=== PATIENT | female | born 1950 | race Caucasian/White ===

== ENCOUNTER 2019-06-03 17:30 | Inpatient (IN) | payer OTHER ==
[~2019-06-03] VITALS: Ht 165.1 cm; Wt 157.4 kg
[2019-06-03 17:50] LABS: ABSOLUTE NEUTROPHILS 6.1 thou/uL (1.4-8.2); BASOPHILS 0.6 % (0.0-2.0); EOSINOPHILS 2.9 % (0.0-3.0); HEMATOCRIT 44.5 % (37.0-47.0); HEMOGLOBIN 14.6 gm/dL (12.0-15.0); LYMPHOCYTES 25.5 % (24.0-44.0); MCH 30.3 pg (26.0-34.0); MCHC 32.8 g/dL (28.0-37.0); MCV 92.5 fL (80.0-100.0); MONOCYTES 9.6 % (1.0-8.0); PLATELET COUNT 238 thou/uL (150-400); POLYS 61.4 % (36.0-66.0); RBC 4.81 mil/uL (4.20-5.00); RDW 14.4 % (10.5-14.5); WBC 9.9 thou/uL (4.0-11.0)
[2019-06-03 18:04] LABS: ANION GAP 6 mmol/L (7-16); BUN 25 mg/dL (7-18); CALCIUM 9.4 mg/dL (8.5-10.1); CHLORIDE 101 mmol/L (98-107); CO2 33 mmol/L (21-32); GLUCOSE 119 mg/dL (74-106); POTASSIUM 3.3 mmol/L (3.5-5.1); SODIUM 140 mmol/L (136-145)
[2019-06-03 18:05] LABS: APTT 26.5 Seconds (24.5-32.8)
[2019-06-03 18:13] LABS: ALBUMIN 3.5 g/dL (3.4-5.0); SGOT 16 U/L (15-37); SGPT 20 U/L (30-65); TOTAL BILIRUBIN 0.5 mg/dL (<0.1-1.0); TOTAL PROTEIN 7.3 g/dL (6.4-8.2); TROPONIN-I <0.06 ng/mL (<0.06)
[2019-06-03 18:20] LABS: URINE BILIRUBIN NEGATIVE (Negative); URINE BLOOD NEGATIVE (Negative); URINE CLARITY CLEAR; URINE COLOR YELLOW; URINE GLUCOSE-RANDOM* NEGATIVE (Negative); URINE KETONES NEGATIVE (Negative); URINE LEUKOCYTES-REFLEX NEGATIVE (Negative); URINE NITRITE-REFLEX NEGATIVE (Negative); URINE PROTEIN (DIPSTICK) NEGATIVE (Negative); URINE UROBILINOGEN 0.2 E.U./dl (0.2-1.0)
[2019-06-03 18:27] LABS: AMP/METHAMP Negative (Negative); BARBITURATES Negative (Negative); BENZODIAZEPINES Negative (Negative); COCAINE Negative (Negative); METHADONE Negative (Negative); OPIATES Negative (Negative); PCP Negative (Negative)
[2019-06-03] MEDS ORDERED: HYDROCHLOROTHIA25 M2 PO (18:36)
[2019-06-03 19:22] VITALS: BP 141/73
--- NOTE | 2019-06-03 20:35 | NUR ---
ED NURSE CALLED INPATIENT NURSE TO GIVE REPORT WAS TOLD NURSE WILL CALL BACK IN 5 MINUTES
--- NOTE | 2019-06-03 20:36 | NUR ---
HEPARIN ORDER WAS PLACED BY ED PHYSICIAN AT 1838, PT WAS IN MRI UNTIL 1944, THIS NURSE CALLED PHARMACY AT 1951 TO INQUIRE ABOUT THE HEPARIN DRIP, WAS TOLD BY PHARMACY THAT THE ORDER NEVER WENT THROUGH AND THEY DID NOT KNOW ANYTHING ABOUT IT.
[2019-06-03 21:00] VITALS: BP 151/75
[2019-06-03 21:19] LABS: CHOLESTEROL 229 mg/dL (<200); HDL CHOLESTEROL 56 mg/dL (>40); LDL CHOLESTEROL 156 mg/dL (<100); SERUM ASSESSMENT Clear; TC:HDL 4.1 Ratio (Not establshd); TRIGLYCERIDE 89 mg/dL (<150); VLDL 18 mg/dL (<40)
[2019-06-03 23:41] VITALS: BP 154/63
[2019-06-04 03:31] VITALS: BP 124/67
--- NOTE | 2019-06-04 05:22 | NUR ---
PT ARRIVED ON UNIT AROUND 2100. PT WAS ACCOMPANIED BY DAUGHTER AND BROTHER. PT SCORED 0 ON NIH SCALE THAT HAS BEEN DONE Q4. PT LEFT SIDED FACIAL DROOP IS RESOLVED AND NO CHANGE NOTED. PT IS AOX4 AND ABLE TO ANSWER ADMIN QUESTIONS WITH NO PROBLEMS. PT HAD NO C/O OF CHEST PAIN, SOA, OR N/V/D. PT IS AFIB/AFLUTTER ON MONITOR BUT ASYMPTOMATIC. PT HAS ORDERS TO START CARDIZEM IF HR ELEVATES. PT ON HEPARIN DRIP AND DOSE ADJUSTED PER PHARMACY AND LAB LEVELS. PT IS STEADY ON FEET WITH STBY ASSIST. CONSULTS CALLED. WILL CONTINUE TO MONITOR.
[2019-06-04 07:00] VITALS: BP 126/63
[2019-06-04 07:21] LABS: CALCIUM 9.3 mg/dL (8.5-10.1); CREATININE 0.9 mg/dL (0.6-1.0); POTASSIUM 3.4 mmol/L (3.5-5.1)
--- NOTE | 2019-06-04 08:16 | EKG ---
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
[2019-06-04 12:30] VITALS: BP 126/76
--- NOTE | 2019-06-04 14:07 | 2DMMODE ---
[facility] [address] [facility] [place] [address] 2 D/M-MODE ECHOCARDIOGRAM Name: LOPEZ ARENAS Room #: 219-P ADM IN M.R.#: [id number] Admission: 06/03/19 Attend Phys: Phillip Michael MD Discharge: Date of : 50 Report #: [id number] THIS REPORT FOR: cc: FAM - No family physician/PCP ZEV - No family physician/PCP Aidan Hawthorne MD ~ APPROVED REPORT Study performed: 06/04/2019 10:32:55 EXAM: Comprehensive 2D, Doppler, and color-flow Echocardiogram Patient Location: Bedside Room #: 219 Status: routine BSA: 2.51 HR: 85 bpm BP: 126/63 mmHg Rhythm: NSR Other Information Study Quality: Good Risk Factors: Cardiac Risk Factors: HTN Indications Aortic Valve Disease Mitral Valve Disease CVA/TIA Murmur Atrial Fibrillation Echo Enhancing Agent Indication: Endocardial border delineation Agent(s) / Amount(s) Used: Optison 3 cc Comments: 7 cc Agitated saline to rule out a shunt. 2D Dimensions RVDd: 46.66 mm IVSd: 17.83 (7-11mm) LVOT Diam: 16.60 (18-24mm) LVDd: 40.78 mm PWd: 13.66 (7-11mm) Ascending Ao: 30.88 (22-36mm) LVDs: 29.76 (25-40mm) Aortic Root: 25.82 mm IVC: 26.00 mm [facility] [address] [place] [address] 2 D/M-MODE ECHOCARDIOGRAM Name: LOPEZ ARENAS Room #: 219-P ADM IN M.R.#: [id number] Admission: 06/03/19 Attend Phys: Phillip Michael MD Discharge: Date of : 50 Report #: [id number] Volumes Left Atrial Volume (Systole) Single Plane 4CH: 139.78 mL Single Plane 2CH: 122.95 mL LA ESV Index: 54.00 mL/m2 Aortic Valve AoV Peak Kyler.: 3.23 m/s AO Peak Gr.: 41.63 mmHg LVOT Max P.47 mmHg AO Mean Gr.: 25.40 mmHg LVOT Mean P.23 mmHg AO V2 Mean: 2.45 m/s LVOT Max V: 1.62 m/s AO V2 VTI: 73.96 cm LVOT Mean V: 1.30 m/s LIA (VTI): 1.11 cm2 LVOT V1 VTI: 37.88 cm LIA Vmax: 1.08 cm2 SV (LVOT): 81.99 mL Mitral Valve MV Peak Gr.: 10.19 mmHg MV Mean Gr.: 3.61 mmHg MV Max Kyler.: 1.59 m/s MV Mean Kyler.: 0.84 m/s MV VTI: 353.17 mm MVA VTI: 232.14 mm2 MV PHT: 84.78 ms MVA (PHT): 2.60 cm2 Pulmonary Valve PV Peak Kyler.: 1.39 m/s PV Peak Gr.: 7.72 mmHg Tricuspid Valve TR Peak Kyler.: 3.14 m/s TR Peak Gr.: 39.52 mmHg PA Pressure: 47.00 mmHg Left Ventricle The left ventricle is normal size. There is hypokinesis in the apical wall. Moderate concentric left ventricular hypertrophy. The overall left ventricular systolic function appears normal. No left ventricular thrombus noted. LVEF is 50-55%. This study is not technically sufficient to allow evaluation of the LV diastolic function due to atrial fibrillation. Right Ventricle The right ventricle is normal size. The right ventricular systolic function is normal. [facility] [address] [place] [address] 2 D/M-MODE ECHOCARDIOGRAM Name: LOPEZ ARENAS Room #: 219-P [facility] IN .R.#: [id number] Admission: 06/03/19 Attend Phys: Phillip Michael MD Discharge: Date of : 50 Report #: [id number] Atria Left atrium is dilated. Interatrial septum is intact without evidence of ASD or PFO. Right atrium is dilated. Aortic Valve The aortic valve is normal in structure. Aortic valve is calcified. Mild aortic regurgitation. Moderate aortic stenosis. Mitral Valve The mitral valve is normal in structure. There is mitral annular calcification. Mitral valve leaflets are thickened. Mild mitral regurgitation. Mild mitral stenosis. Tricuspid Valve The tricuspid valve is normal in structure. There is mild tricuspid regurgitation. Estimated PAP 47 mmHg. There is moderate pulmonary hypertension. Pulmonic Valve The pulmonary valve is normal in structure. Trace to mild pulmonic regurgitation. Great Vessels The aortic root is normal in size. IVC is dilated and collapses >50% with inspiration. Pericardium There is no pericardial effusion. <Conclusion> The left ventricle is normal size. LVEF is 50-55%. There is hypokinesis in the apical wall. Left atrium is dilated. Right atrium is dilated. Interatrial septum is intact without evidence of ASD or PFO. The aortic valve is normal in structure. Aortic valve is calcified. Mild aortic regurgitation. Moderate aortic stenosis. The mitral valve is normal in structure. There is mitral annular calcification. Mitral valve leaflets are thickened. Mild mitral regurgitation. Mild mitral stenosis. The tricuspid valve is normal in structure. [address] [address] 2 D/M-MODE ECHOCARDIOGRAM Name: LOPEZ ARENAS Room #: 219-P [facility] IN M.R.#: [id number] Admission: 06/03/19 Attend Phys: Phillip Michael MD Discharge: Date of : 50 Report #: [id number] There is mild tricuspid regurgitation. Estimated PAP 47 mmHg. There is moderate pulmonary hypertension. The pulmonary valve is normal in structure. Trace to mild pulmonic regurgitation. There is no pericardial effusion. <ELECTRONICALLY SIGNED> By: Aidan Hawthorne MD 06/04/19 1406 140 140 Aidan Hawthorne MD /INF
--- NOTE | 2019-06-04 14:48 | NUR ---
ORDERS RECEIVED FOR PT EVAL AND TREAT. Pt HAS BEEN UP IN ROOM SBA WITH NURSING D/T HEPARIN DRIP. AOX4. Pt LIVES ALONE AT HOME WITH 2 HEIDY WITH BILAT HR. NORMALLY HAS NO DIFFICULTY WITH STAIRS. Pt HAS BROTHER AND DTR NEARBY THAT SHE COULD CALL IF NEEDED HELP AT HOME. DENIED RECENT FALLS. USES NO GAIT AIDS. INDEP WITH ADLs/IADLs. Pt'S LE STRENGTH GROSSLY 5/5. NO FACIAL DROOP NOTED AND NO UNILAT STRENGTH/SENSATION DEFICITS NOTED. Pt ABLE COMPLETE BED MOB AND SIT<> STAND INDEP AND AMB IN ROOM SBA WITH IV POLE. Pt DECLINED FURTHER PT NEEDS AT THIS TIME. ACUTE PT TO SIGN OFF. RECOMMEND CONTINUED SBA WITH NURSING STAFF WHILE ON HEPARIN DRIP FOR SAFETY D/T INCREASED RISK OF BLEEDING.
[2019-06-04 16:51] VITALS: BP 123/54
[2019-06-04 19:24] VITALS: BP 134/71
--- NOTE | 2019-06-04 19:46 | NUR ---
ASSUMED CARE OF PATIENT AT 0700. PATIENT RESTING COMFORTABLY IN BED. ASSESSMENT COMPLETED. NO VISUAL FACIAL DROOPING OR APHASIA. NIH SCALES PERFORMED Q FOUR HOURS WITH A SCORE OF 0. PATIENT CONTINUES TO BE IN AFIB WITH A CONTROLLED RATE IN THE 80'S. PATIENT IS ON HEPARIN CONTINUOUSLY WITH APTT Q 6 HOURS, FIRST THERAPEUTIC RESULT AT 1445. PATIENT CONTINUE WITH POC.
[2019-06-05 01:07] LABS: GLYCOHEMOGLOBIN (HGB A1C) 5.7 % (4.8-5.6)
[2019-06-05 03:47] VITALS: BP 115/57
--- NOTE | 2019-06-05 05:12 | NUR ---
ASSUMED PT CARE AROUND 1900. PT RESTING IN CHAIR AT BEDSIDE. PT HAD NO C/O PAIN, SOA, N/V/D. PT NIH STILL 0. PT STILL ON HEPARIN DRIP. PT HAS NO SIGNS OF DISTRESS NOTED. PT ASSESSMENT CHARTED. PT RESTED THRU NIGHT WITH MINIMAL INTERRUPTIONS.
[2019-06-05 07:40] VITALS: BP 118/74
[2019-06-05 11:40] VITALS: BP 146/79
[2019-06-05 15:56] VITALS: BP 143/83
--- NOTE | 2019-06-05 16:56 | NUR ---
RECEIVED PT'S CARE AROUND 0730; PT. AOX4; DURING AM ASSESSMENT NO C/O PAIN; NEURO ASSESSMENT SCORE 0 DURING AM; HEPARING GTT RUNNING; NO CHANGE ON RATE; ABLE TO AMBULATE FROM CHAIR TO BATHROOM; AM MEDICATION GIVEN; EDUCATED ABOUT NOT EATING DUE TO STRESS TEST LATER ON THE DAY; UNDERSTANDING; GONE FOR PROCEDURE AROUND 0930; BACK AROUND 1130; NO C/O PAIN; AFIB ON THE MONITOR; PER PT. REPORT DR. MCDONALD ST. PT. NEED TO HAVE A TEST TO CHECK DURING THE NIGHT 02; PT. 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 NOTIFIED; NO CHANGES OVER NEURO ASSESSMENT THROUGH THE DAY; ASSESSMENT CHARGED; FOLLOWING POC; WILL PASS ON REPORT;
[2019-06-05 20:45] VITALS: BP 139/60; BP 156/92
--- NOTE | 2019-06-06 03:17 | NUR ---
pt resting quietly in room, noc desat study on room air, no c/o pain, heparin gtt infusing per protocol, vss, will con't to monitor per ppoc.
[2019-06-06 04:45] VITALS: BP 112/58
[2019-06-06 08:00] VITALS: BP 120/66
--- NOTE | 2019-06-06 12:08 | NUR ---
AAOX4. CALM, PLEASANT. HEPARIN DRIP. NOCTURNAL DESAT STUDY OVERNIGHT. AFIB PER TELE, RATE CONTROLLED. DR. MONTERROSO HERE; PERMIT FOR CARDIAC CATH SATURDAY SIGNED. WILL CONTINUE TO FOLLOW CLOSELY.
[2019-06-06 16:00] VITALS: BP 136/72
[2019-06-06 18:32] LABS: HEMATOCRIT 44.1 % (37.0-47.0); HEMOGLOBIN 14.2 gm/dL (12.0-15.0); MCH 29.9 pg (26.0-34.0); MCHC 32.1 g/dL (28.0-37.0); MCV 93.1 fL (80.0-100.0); RBC 4.74 mil/uL (4.20-5.00); RDW 14.8 % (10.5-14.5); WBC 7.8 thou/uL (4.0-11.0)
[2019-06-06 20:33] VITALS: BP 107/69
[2019-06-07 04:45] VITALS: BP 149/77
--- NOTE | 2019-06-07 06:46 | NUR ---
ASSUME CARE 1900. PT/VITALS STABLE. DENIES ANY PAIN. UP AD RAYNE. AFIB/AFLUTTER ON MONITOR. ASSESSMENT CHARTED. PROGRESSING WELL WITH POC. PT ON HEPARIN DRIP WITH STABLE PTT. POSITIVE STRESS TEST. PLAN IS CARDIAC CATH ON SATURDAY. WILL CONTINUE TO MONITOR AND FOLLOW WITH POC
[2019-06-07 08:58] VITALS: BP 120/74
--- NOTE | 2019-06-07 10:12 | NUR ---
AAOX4. CALM, COOPERATIVE. AMBULATING AROUND THE ROOM. NO C/O. HEPARIN DRIP IN THERAPEUTIC WINDOW. CARDIAC CATH TOMORROW. AFIB/AFLUTTER PER TELE. WILL CONTINUE TO FOLLOW CLOSELY.
[2019-06-07 13:48] VITALS: BP 136/76
[2019-06-07 17:00] VITALS: BP 131/70
[2019-06-07 20:57] VITALS: BP 138/63
[2019-06-08] VITALS (13 sets, daily range): BP systolic 101–137; BP diastolic 57–76
--- NOTE | 2019-06-08 04:18 | NUR ---
PT ALERT AND ORIENTED. VSS. AFIB, AND RATE CONTROLLED ON THE MONITOR. DENIES CHEST PAINS, OR ANY SOB. NO FACIAL DROOP OR SLURRED SPEECH NOTICED. HEPARIN GTT MAINTAINED. NPO SINCE 0000 FOR CARDIAC CATH TODAY. NO SIGNS OF DISTRESS NEEDED AT THIS TIME. WILL CONTINUE TO FOLLOW POC.
--- NOTE | 2019-06-08 13:32 | NUR ---
PT ARRIVED TO FLOOR AT 1110 FROM ER, FIANCE AT SIDE, ASSESSED, ORIENTED X 4, BUT SOMEWHAT CONFUSED AT TIMES, VSS, ORIENTED TO ROOM, STAFF, POC, CONSENT SIGNED, PT IS NOW NPO FOR U/S OF ABDOMEN, GI NON DESTRUCTIVE TESTING SPECIALIST AND MD IN TO SEE PT, DISCUSSED NEED FOR AA TO GET SUPPORT AND STOP DRINKING ALCOHOL. PT HAD ONE EPISODE OF DIARRHEA, GIVEN A BRIEF, WILL MONITOR.
--- NOTE | 2019-06-08 18:20 | CATHLAB ---
[facility] [address] [place] [address] INVASIVE PROCEDURE REPORT Name: LOPEZ ARENAS Room #: 219-P ADM IN M.R.#: [id number] Admission: 06/03/19 Attend Phys: Sid Lucia MD Discharge: Date of : 50 Report #: [id number] THIS REPORT FOR: cc: FAM - No family physician/PCP FAM - No family physician/PCP Ky Mathis MD [facility] ~ ADDENDUM APPROVED REPORT Study performed: 06/08/2019 07:40:05 Patient Details Patient Status: In-Patient Room #: The patient is a 68 year-old female Event Personnel Ky Mathis Substance Abuse Specialist, Marti Roberts RN RN, Rosalinda Nazario RTR, Santiago Lindsey Roberta Monitor Procedures Performed Art Access - R femoral artery* Yunior Access - R femoral vein Right and Left Heart Cath w/Lt. Venogram [id number] RLCWLV Aortogram Abdominal Peripheral Angio 279109 Hemostasis w/ Mynx SADIQ Place w/wo Plasty Single LAD 629374 94705 Initial Mod Sed Same Phys/QHP Gr5y 849172 86941 Mod Sed Same Phys/QHP Ea 604129 Indication Chest pain Procedure Narrative The Right Groin^ was infiltrated with subcutaneous anesthesia. A PINNACLE 6FR Sheath #[id number] sheath was inserted into the RFA 6F^. Coronary angiography was performed using coronary diagnostic catheters. The right coronary system was accessed and visualized with a JR4 catheter. The left coronary system was accessed and visualized with a JL4 catheter. The left ventricle was accessed and visualized with a STR PIG catheter. Left ventriculogram was performed in 30 degree projection. An aortogram of the abdominal aorta was performed. Closure device was deployed with a Fr MYNXGRIP 6/7F #[id number]. Hemostasis was obtained with manual pressure following sheath removal without any complications. The patient tolerated the procedure well and there were no complications associated with the procedure. There was no hematoma. 7F SHEATH PLACED IN RFV - HELD MANUAL PRESSURE WITH NO COMPLICATIONS. [facility] [address] [place] [address] INVASIVE PROCEDURE REPORT Name: LOPEZ ARENAS Room #: 219-P [facility] IN ..#: [id number] Admission: 06/03/19 Attend Phys: Sid Lucia MD Discharge: Date of : 50 Report #: [id number] Intraoperative Conscious Sedation Sedation start time: 0800 Case end Time: 919 Fentanyl 50 mcg Versed 1 mg Fluoro Time: 1953.00 minutes Dose: DAP 32146.90 cGycm2 1953 mGy Contrast Type and Amount: Omnipaque 195 ml Hemodynamics The right atrial mean pressure is 21 mmHg. The right ventricular pressure is 55/10 mmHg. The pulmonary artery pressure is 62/19 mmHg with a mean of 38 mmHg. The mean pulmonary capillary wedge pressure is 31 mmHg. The aortic pressure is 128/66 mmHg with a mean of 49 mmHg. The cardiac output using thermo method is 5.10 L/min. The cardiac index using thermo method is 2.06 L/min/m2. PCI Technique Lesion Percutaneous coronary intervention was performed on the proximal left anterior descending artery segment. A LAUNCHER 6FR EBU 3.5 #[id number] Guide Catheter was used to engage the LAD ostium. A Luge Wire .014 x 182CM #[id number] Interventional Guidewire was used to cross the lesion. BALLOON DILATION A Balloon catheter Sprinter OTW 2.5 x 12 #[id number] was inserted and inflated up to 4.00atm for 29seconds. Additional Inflation: 12.00atm for 24seconds. Additional Inflation: 6.00atm for 18seconds. 8 TENISHA F 18 SEC/MIN (4TH INFLATION) STENT DEPLOYMENT A stent RESOLUTE BURKE OTW 2.5 X 18 #[id number] was inserted and inflated up to 14.00atm for 28seconds. Additional Inflation: 18.00atm for 34seconds. Conclusion #1. Successful PTCA stent of a subtotal proximal LAD lesion placement of a 2.5 x 18 resolute Burke postdilated 2.7 mm DESIREE grade III flow no dissection or thrombus formation. #2 left main mild ostial disease of 10 to 20% giving rise to LAD and circumflex #3 circumflex OM is nondominant with mild irregularity. No occlusive disease #4 large dominant right coronary artery which extends to the apex some collateral filling or competitive filling to the subtotally occluded LAD prior to stent placement. [facility] [address] [place] [address] INVASIVE PROCEDURE REPORT Name: LOPEZ ARENAS Room #: 219-[facility] IN M.R.#: [id number] Admission: 06/03/19 Attend Phys: Sid Lucia MD Discharge: Date of : 50 Report #: [id number] #5 normal left ventricular size with subtle anterior apical hypokinesis EF 50 to 55% #6 abdominal aorta is intact without evidence of aneurysm renal arteries are widely patent. Recommendations and plan: Continue aggressive risk factor modification. Dual antiplatelet therapy. Transferred to CCU in stable condition. <ELECTRONICALLY SIGNED> By: Ky Mathis MD, FACC 06/08/191818 18 18 Ky Mathis MD, FACC /INF
[2019-06-09 04:11] VITALS: BP 118/67
--- NOTE | 2019-06-09 04:12 | NUR ---
PT ALERT AND ORIENTED. RESTFUL NIGHT S/P CARDIAC STENT. NO C/O CHEST PAIN OR SOB REPORTED. PT IS INDEPENDENT. RIGHT GROIN SITE C/D/I. PT ANTICIPATE TO DC THIS AM. REMAINS IN AFIB AFLUTTER ON THE MONITOR. WILL CONTINUE WITH POC.
[2019-06-09 04:58] LABS: CALCIUM 8.6 mg/dL (8.5-10.1); CREATININE 0.9 mg/dL (0.6-1.0); POTASSIUM 3.4 mmol/L (3.5-5.1); TOTAL BILIRUBIN 0.9 mg/dL (<0.1-1.0); TOTAL PROTEIN 6.5 g/dL (6.4-8.2); TROPONIN-I 0.08 ng/mL (<0.06)
[2019-06-09 05:00] LABS: HEMATOCRIT 41.7 % (37.0-47.0); HEMOGLOBIN 13.6 gm/dL (12.0-15.0); MCHC 32.6 g/dL (28.0-37.0); MCV 92.2 fL (80.0-100.0); RBC 4.52 mil/uL (4.20-5.00); RDW 14.5 % (10.5-14.5); WBC 9.2 thou/uL (4.0-11.0)
[2019-06-09 08:10] VITALS: BP 115/59
[2019-06-09] MEDS ORDERED: METOPROLOL SUCC25 M1 PO (08:11)
[2019-06-09] MEDS ORDERED: ADULT LOW DOSE81 MG PO (08:11)
[2019-06-09] MEDS ORDERED: XARELTO20 MG PO (08:11)
[2019-06-09] MEDS ORDERED: EFFIENT10 MG PO (08:11)
[2019-06-09] MEDS ORDERED: LIPITOR40 MG PO (08:11)
[2019-06-09] MEDS ORDERED: COZAAR 25 MG TA25 M1 PO (08:18)
--- NOTE | 2019-06-09 08:22 | NUR ---
ASSESSMENT: CM REVIEWED CHART AND MET WITH PATIENT AT THE BEDSIDE. PT HAD A CARDIAC CATH YESTERDAY. PT REPORTS SHE LIVES IN A HOUSE ALONE. PT REPORTS BEING FULLY INDEPENDENT WITH ADLS AND AMBULATION. PT STATES SHE HAS A GRAB BAR IN HER WALK IN SHOWER. PT DENIES HAVING HH IN THE PAST OR BEING TO A SNF. CM DISCUSSED ROLE. PT REPORTS SHE DOES NOT ANTICIPATE HAVING ANY NEEDS FROM CM. CM WILL CONTINUE TO FOLLOW TO ASSIST NEEDED.
[2019-06-09 08:40] VITALS: BP 115/59
--- NOTE | 2019-06-09 08:59 | EKG ---
[facility] [place] [address] ELECTROCARDIOGRAM REPORT Name: LOPEZ ARENAS Room #: 219-P ADM IN M.R.#: [id number] Admission: 06/03/19 Attend Phys: Sid Lucia MD Discharge: Date of : 50 Report #: [id number] THIS REPORT FOR: cc: ZEV - Leslie family physician/PCP ZEV - No family physician/PCP Donaldo Small MD [facility] THIS REPORT FOR: //name// [facility] Test Date: 2019-06-09 Test Time: 08:30:26 Pat Name: LOPEZ ARENAS Department: Room: 219 P Gender: F Sociology Instructor: Doug VILLA : 1950 Requested By: Ky Mathis Order Number: [id number] MD: Donaldo Small Measurements Intervals [place] Rate: 68 P: OR: QRS: -11 QRSD: 97 T: 65 QT: 417 QTc: 444 Interpretive Statements Atrial fibrillation Poor R wave progression Compared to ECG 06/03/2019 17:54:15 No significant change was found Electronically Signed On 06-09-2019 8:58:05 CDT by Donaldo Small [email or web address] <ELECTRONICALLY SIGNED> By: Donaldo Small MD, [facility] 06/09/19 0858 9 9 Donaldo Small MD, [facility] /EPI
--- NOTE | 2019-06-09 09:14 | NUR ---
PT CARE ASSUMED APPROXIMATELY 0700. PT ASSESSMENT CHARTED. PT MEDICATIONS CHARTED. PT DENIES PAIN. PT TO BE DISCHARGED HOME. PT TELE DC'D. PT IV DC'D. VSS.
[2019-06-09 09:27] VITALS: BP 115/59
== END 2019-06-09 11:00 | disposition home or self-care (01) | DRG 982 ==
LOC: ER 17:30 → EROBS 18:42 → 2N 18:42 → ENTRNSPT 06-09 10:18 → EDTRNSPTSTS 06-09 10:47 → 2N 06-09 11:00
PROVIDERS: Emergency Medicine; Emergency Medicine Emergency Medical Services; Internal Medicine Cardiovascular Disease; Nurse Practitioner Family; ADMIT Hospitalist
PROC: B4101ZZ Fluoroscopy of Abdominal Aorta using Low Osmolar Contrast (ICD-10-PCS; principal; 2019-06-08)
PROC: B3101ZZ Fluoroscopy of Thoracic Aorta using Low Osmolar Contrast (ICD-10-PCS; principal; 2019-06-08)
PROC: B2111ZZ Fluoroscopy of Multiple Coronary Arteries using Low Osmolar Contrast (ICD-10-PCS; principal; 2019-06-08)
PROC: B2151ZZ Fluoroscopy of Left Heart using Low Osmolar Contrast (ICD-10-PCS; principal; 2019-06-08)
PROC: 4A023N8 Measurement of Cardiac Sampling and Pressure, Bilateral, Percutaneous Approach (ICD-10-PCS; principal; 2019-06-08)
PROC: 027034Z Dilation of Coronary Artery, One Artery with Drug-eluting Intraluminal Device, Percutaneous Approach (ICD-10-PCS; principal; 2019-06-08)
DX: G45.9 Transient cerebral ischemic attack, unspecified (principal); I42.9 Cardiomyopathy, unspecified; Z68.43 Body mass index [BMI] 50.0-59.9, adult; E44.0 Moderate protein-calorie malnutrition; I25.10 Atherosclerotic heart disease of native coronary artery without angina pectoris; I48.91 Unspecified atrial fibrillation; R29.810 Facial weakness; I10 Essential (primary) hypertension; E78.5 Hyperlipidemia, unspecified; R47.81 Slurred speech; I27.20 Pulmonary hypertension, unspecified; I08.0 Rheumatic disorders of both mitral and aortic valves; Z82.3 Family history of stroke; Z82.49 Family history of ischemic heart disease and other diseases of the circulatory system; E66.01 Morbid (severe) obesity due to excess calories; Z71.3 Dietary counseling and surveillance
CPT/HCPCS: 10081

== ENCOUNTER → 2019-06-17 | Outpatient (CLI) | payer OTHER ==
[~2019-06-17] MED LIST: ADULT LOW DOSE81 MG PO; COZAAR 25 MG TA25 M1 PO; EFFIENT10 MG PO; HYDROCHLOROTHIA25 M2 PO; LIPITOR40 MG PO; METOPROLOL SUCC25 M1 PO; XARELTO20 MG PO
== END ==
LOC: SJCVC 11:29
DX: N93.9 Abnormal uterine and vaginal bleeding, unspecified (principal)

== ENCOUNTER → 2019-07-01 | Outpatient (CLI) | payer OTHER | LOC: SJCVCIMAG 09:25 | DX: I08.8 Other rheumatic multiple valve diseases (principal); I48.91 Unspecified atrial fibrillation; I10 Essential (primary) hypertension; I25.10 Atherosclerotic heart disease of native coronary artery without angina pectoris; E78.5 Hyperlipidemia, unspecified; I42.9 Cardiomyopathy, unspecified; I27.20 Pulmonary hypertension, unspecified ==

== ENCOUNTER → 2019-09-22 | Outpatient (CLI) | payer OTHER | LOC: SJCVCIMAG 13:53 | PROVIDERS: ATTEND Internal Medicine Cardiovascular Disease | DX: I08.1 Rheumatic disorders of both mitral and tricuspid valves (principal); R94.31 Abnormal electrocardiogram [ECG] [EKG]; I48.19 Other persistent atrial fibrillation; I42.9 Cardiomyopathy, unspecified; I25.10 Atherosclerotic heart disease of native coronary artery without angina pectoris; G45.9 Transient cerebral ischemic attack, unspecified; I10 Essential (primary) hypertension; E78.5 Hyperlipidemia, unspecified; Z79.899 Other long term (current) drug therapy; Z86.73 Personal history of transient ischemic attack (TIA), and cerebral infarction without residual deficits ==

== ENCOUNTER → 2019-09-24 | Outpatient (CLI) | payer OTHER | LOC: LAB 07:36 | PROVIDERS: ATTEND Internal Medicine Cardiovascular Disease | DX: Z01.818 Encounter for other preprocedural examination (principal); Z11.59 Encounter for screening for other viral diseases ==

== ENCOUNTER → 2019-09-29 | Outpatient (CLI) | payer OTHER ==
--- NOTE | ~2019-09-29 | P ---
[facility] [address] [address] PROCEDURE REPORT Name: LOPEZ ARENAS Room #: [facility]#: [id number] Admission: 09/29/19 Attend Phys: Yury Barcenas MD Discharge: Date of : 50 Report #: [id number] THIS REPORT FOR: cc: ZEV - Leslie family physician/PCP ZEV - Leslie family physician/PCP Yury Barcenas MD ~ CC: ZEV physician/PCP Yury Barcenas DATE OF SERVICE: 09/29/2019 PREOPERATIVE DIAGNOSIS: Atrial fibrillation. POSTOPERATIVE DIAGNOSIS: Atrial fibrillation. DESCRIPTION OF PROCEDURE: The patient underwent informed consent. The patient was prepped in a standard fashion. She was then sedated by the Anesthesiology Service. Once sedated, she underwent 200 joules synchronized cardioversion with samaritan of sinus rhythm. There were no procedure related complications. CONCLUSIONS: Successful DC cardioversion with samaritan of sinus rhythm. By: 1217 1226 Yury Barcenas MD /nt
[2019-09-29 07:57] LABS: HEMATOCRIT 34.7 % (37.0-47.0); HEMOGLOBIN 11.6 gm/dL (12.0-15.0); MCHC 33.4 g/dL (28.0-37.0); RBC 3.73 mil/uL (4.20-5.00); RDW 14.1 % (10.5-14.5); WBC 7.4 thou/uL (4.0-11.0)
[2019-09-29 08:07] LABS: CALCIUM 8.9 mg/dL (8.5-10.1); POTASSIUM 3.4 mmol/L (3.5-5.1)
[2019-09-29 08:14] LABS: ALBUMIN 3.3 g/dL (3.4-5.0); TOTAL BILIRUBIN 0.7 mg/dL (0.2-1.0); TOTAL PROTEIN 7.2 g/dL (6.4-8.2)
== END | disposition home or self-care (01) ==
LOC: CATH 06:26
PROVIDERS: ATTEND Internal Medicine Cardiovascular Disease
DX: I48.91 Unspecified atrial fibrillation (principal); I25.10 Atherosclerotic heart disease of native coronary artery without angina pectoris; Z79.01 Long term (current) use of anticoagulants; Z98.890 Other specified postprocedural states; Z86.73 Personal history of transient ischemic attack (TIA), and cerebral infarction without residual deficits; Z79.899 Other long term (current) drug therapy
CPT/HCPCS: 62110; 62900

== ENCOUNTER → 2019-10-29 | Outpatient (CLI) | payer OTHER | LOC: SJCVC 14:00 | PROVIDERS: ATTEND Internal Medicine Cardiovascular Disease | DX: I48.0 Paroxysmal atrial fibrillation (principal); I25.10 Atherosclerotic heart disease of native coronary artery without angina pectoris; I10 Essential (primary) hypertension; E66.9 Obesity, unspecified; Z82.49 Family history of ischemic heart disease and other diseases of the circulatory system; Z79.899 Other long term (current) drug therapy; Z86.73 Personal history of transient ischemic attack (TIA), and cerebral infarction without residual deficits ==

== ENCOUNTER → 2019-12-29 | Outpatient (CLI) | payer OTHER | LOC: SJCVC 13:08 | PROVIDERS: ATTEND Internal Medicine Cardiovascular Disease | DX: I25.10 Atherosclerotic heart disease of native coronary artery without angina pectoris (principal); I48.0 Paroxysmal atrial fibrillation; I10 Essential (primary) hypertension; E78.5 Hyperlipidemia, unspecified; I35.0 Nonrheumatic aortic (valve) stenosis; Z86.73 Personal history of transient ischemic attack (TIA), and cerebral infarction without residual deficits; Z82.49 Family history of ischemic heart disease and other diseases of the circulatory system; Z79.899 Other long term (current) drug therapy ==

== ENCOUNTER → 2020-03-02 | Outpatient (CLI) | payer OTHER | LOC: SJCVC 14:30 | PROVIDERS: ATTEND Internal Medicine Cardiovascular Disease | DX: I48.0 Paroxysmal atrial fibrillation (principal); I25.10 Atherosclerotic heart disease of native coronary artery without angina pectoris; E66.9 Obesity, unspecified; Z86.73 Personal history of transient ischemic attack (TIA), and cerebral infarction without residual deficits; Z82.49 Family history of ischemic heart disease and other diseases of the circulatory system; Z79.899 Other long term (current) drug therapy ==

== ENCOUNTER → 2020-08-08 | Outpatient (CLI) | payer OTHER | LOC: SJCVCIMAG 07:22 | PROVIDERS: ATTEND Internal Medicine Cardiovascular Disease | DX: I08.3 Combined rheumatic disorders of mitral, aortic and tricuspid valves (principal); I25.10 Atherosclerotic heart disease of native coronary artery without angina pectoris; I42.9 Cardiomyopathy, unspecified; I48.91 Unspecified atrial fibrillation; I35.0 Nonrheumatic aortic (valve) stenosis; D68.59 Other primary thrombophilia; I48.0 Paroxysmal atrial fibrillation; E78.5 Hyperlipidemia, unspecified; N93.9 Abnormal uterine and vaginal bleeding, unspecified; I10 Essential (primary) hypertension; Z79.899 Other long term (current) drug therapy ==

== ENCOUNTER → 2020-11-14 | Outpatient (CLI) | payer OTHER | LOC: SJCVCIMAG 07:27 | PROVIDERS: ATTEND Internal Medicine Cardiovascular Disease | DX: I49.8 Other specified cardiac arrhythmias (principal); I48.91 Unspecified atrial fibrillation; I42.9 Cardiomyopathy, unspecified; I25.10 Atherosclerotic heart disease of native coronary artery without angina pectoris; E78.5 Hyperlipidemia, unspecified; I10 Essential (primary) hypertension; Z79.899 Other long term (current) drug therapy; Z98.61 Coronary angioplasty status ==